=== PATIENT | female | born 1985 | race Caucasian/White ===

== ENCOUNTER 2017-06-10 17:25 | Emergency (ER) | payer MEDICAID ==
[~2017-06-10] VITALS: Ht 157.5 cm; Wt 70.0 kg
[~2017-06-10 17:25] MED LIST: IBUP-2028
[2017-06-10] MEDS ORDERED: CYCLOBENZAPRINE 10MG TABLET PO ONE (21:45)
[2017-06-10] MEDS ORDERED: KETOROLAC 60MG/2ML VIAL IM ONE (21:45)
[2017-06-10 22:45] VITALS: BP 100/48
[2017-06-10 23:12] LABS: CLARITY URINE CLOUDY (CLEAR); COLOR URINE YELLOW (YELLOW); GLUCOSE URINE NEGATIVE (NEGATIVE); KETONES URINE NEGATIVE (NEGATIVE); LEUKOCYTE ESTERASE URINE NEGATIVE (NEGATIVE); NITRITE URINE NEGATIVE (NEGATIVE); OCCULT BLOOD URINE TRACE (NEGATIVE); PH URINE 5.5 (4.5-8.0); PROTEIN URINE NEGATIVE (NEGATIVE); SPECIFIC GRAVITY URINE 1.021 (1.005-1.030); UROBILINOGEN URINE 0.2 E.U./dL (0.2-1.0)
== END 2017-06-11 00:05 | disposition home or self-care (01) ==
LOC: ER 19:30
DX: M54.6 Pain in thoracic spine (principal)
CPT/HCPCS: 81001; 81025; 96372; 99283; J1885

== ENCOUNTER → 2020-01-30 | Outpatient (CLI) | payer MEDICAID | END | disposition home or self-care (01) | LOC: LAB 09:58 | PROVIDERS: ATTEND Obstetrics & Gynecology | DX: Z03.818 Encounter for observation for suspected exposure to other biological agents ruled out (principal) | CPT/HCPCS: U0003-CS ==